=== PATIENT | female | born 1955 | race Two or more races ===

== ENCOUNTER 2017-02-10 13:35 | Day surgery (SDC) | payer BC ==
[2017-02-03 09:35] LABS: HEMATOCRIT 37.7 % (36.0-47.0); HEMOGLOBIN 12.9 g/dL (12.0-15.5); MEAN CORPUSCULAR HEMOGLOBIN 31.5 pg (27.0-33.4); MEAN CORPUSCULAR HGB CONC 34.4 g/dL (32.0-36.0); MEAN CORPUSCULAR VOLUME 92 fl (80-97); RED BLOOD COUNT 4.11 10^6/uL (3.72-5.28); RED CELL DISTRIBUTION WIDTH 13.3 % (11.5-14.0); WHITE BLOOD COUNT 5.7 10^3/uL (4.0-10.5)
[~2017-02-10 13:35] MED LIST: GLYCOPYRROLATE INJ 0.4 MG/2 ML VIAL ONE; LACTATED RINGERS 1000 ML IV PRN; LIDOCAINE 0.5% INJ-PF (5 MG/ML) 50 ML SDV SUBCUT PRN; LIDOCAINE 2% INJ-PF (20 MG/ML) 10 ML AMPUL ONE; METOCLOPRAMIDE HCL INJ/PF 10 MG/2 ML SDV ONE; METRONIDAZOLE 500 MG/NS RTU 100 ML IV PRN; ONDANSETRON HCL INJ/PF 4 MG/2 ML SDV ONE
[2017-02-10] MEDS ORDERED: MIDAZOLAM 2 MG/2 ML INJ ONE (14:21)
[2017-02-10] MEDS ORDERED: FENTANYL CITRATE INJ/PF 100 MCG/2 ML AMPUL ONE ×2 (14:21→15:27)
[2017-02-10] MEDS ORDERED: PROPOFOL INJ 200 MG/20 ML VIAL IV ONE (14:22)
[2017-02-10] MEDS ORDERED: BUPIVACAINE HCL 0.25 % INJ/PF (2.5 MG/1 ML) 30 ML VIAL ONE (14:47)
[2017-02-10] MEDS ORDERED: LIDOCAINE 0.5%/EPINEPHRINE INJ 50 ML VIAL ONE (14:48)
--- NOTE | 2017-02-10 15:09 | Operative Report ---
Operative Report DATE OF SURGERY: 02/10/17 PREOPERATIVE DIAGNOSIS: anal skin tag POSTOPERATIVE DIAGNOSIS: anal skin tag OPERATION: anal skin tag excison SURGEON: NEREYDA CURTIS ANESTHESIA: LMAC TISSUE REMOVED OR ALTERED: anal skin tag COMPLICATIONS: none ESTIMATED BLOOD LOSS: minimal INTRAOPERATIVE FINDINGS: 2 cm anterior anal skin tag with white discoloration PROCEDURE: Informed consent obtained. Patient brought to the operating room placed operating table in supine position. Procedure was done under LMAC. She was placed in a lithotomy position and her perianal region was prepped and draped in usual sterile fashion. Local anesthetic was administered. The anterior anal skin tag measured about 2 cm and has some whitish discoloration at the base. It was completely excised. Hemostasis appeared excellent. The wound was then closed with running chromic suture. Patient tolerated procedure well with no apparent complications and was taken to the recovery area in stable condition.
--- NOTE | 2017-02-10 15:11 | PDOC DISCHARGE SUMMARY ---
Discharge Summary (SDC) - Discharge Final Diagnosis: Anterior anal skin tag. Date of Surgery: 02/10/17 Discharge Date: 02/10/17 Condition: Good Treatment or Instructions: Anterior anal skin tag excision. May discharge patient home when met discharge criteria. Sitz baths after each bowel movement and each night. Follow-up with me in 2 weeks. Stay active at home but avoid strenuous activity. Prescriptions: Oxycodone HCl/Acetaminophen [Percocet 5-325 mg Tablet] 1 tab PO ASDIR PRN #25 tablet PRN Reason: Discharge Diet: As Tolerated Discharge Activity: Activity As Tolerated Report the Following to Your Physician Immediately: Fever over 101 Degrees, Unusual Bleeding - Normal to have small amounts of bleeding., Drainage-Foul Smelling
[2017-02-10] MEDS ORDERED: OXYCODONE-ACETAMINOPHEN 5-325 MG TABLET ONE (16:25)
[2017-02-10] MEDS ORDERED: ONDANSETRON HCL INJ/PF 4 MG/2 ML SDV ONE (16:26)
[2017-02-10 18:15] VITALS: BP 96/65
== END 2017-02-10 17:35 | disposition home or self-care (01) ==
LOC: OROUT 13:35
PROVIDERS: ATTEND Surgery
PROC: 0DBQXZZ Excision of Anus, External Approach (ICD-10-PCS; principal; 2017-02-10 16:00)
DX: D01.3 Carcinoma in situ of anus and anal canal (principal); Z88.7 Allergy status to serum and vaccine
CPT/HCPCS: 36415; 85027; 88305 ×2; 46220; J2250; J3010; J3490 ×2; J2765; J2405; J2704; 902